=== PATIENT | male | born 2000 | race Caucasian/White ===

== ENCOUNTER 2021-07-15 10:03 | Emergency (ER) | payer OTHER ==
[~2021-07-15] VITALS: Ht 165.1 cm; Wt 59.1 kg
[2021-07-15 11:49] VITALS: BP 111/59
== END 2021-07-15 11:50 | disposition home or self-care (01) ==
LOC: EDSEX 10:06 → EMS 10:06
DX: R55 Syncope and collapse (principal); F17.210 Nicotine dependence, cigarettes, uncomplicated; F11.90 Opioid use, unspecified, uncomplicated; F12.90 Cannabis use, unspecified, uncomplicated; F15.90 Other stimulant use, unspecified, uncomplicated
CPT/HCPCS: 93005; 99284; Z7502

== ENCOUNTER 2025-06-01 20:30 | Emergency (ER) | payer MEDICAID, OTHER ==
[~2025-06-01] VITALS: Ht 165.1 cm; Wt 54.5 kg
[2025-06-01 20:49] VITALS: TEMP 98
[2025-06-01 22:19] VITALS: BP 108/71; PULSE 94; RESP 18; O2SAT 99
[2025-06-01] MEDS: AMOX TR/POT CLAV 875 MG/125 MG TABLET PO ONE (22:59)
[2025-06-01] MEDS: SULFAMETHOX/TRIMETH DS 800-160 MG/TABLET PO ONE (22:59)
[2025-06-01] MEDS: IBUPROFEN 400 MG TABLET PO ONE (22:59)
[2025-06-01] MEDS: ACETAMINOPHEN 500 MG TABLET PO ONE (22:59)
[2025-06-01] MEDS ORDERED: AMOX-457 PO (23:00)
[2025-06-01] MEDS ORDERED: ACET-2247 PO (23:00)
[2025-06-01] MEDS ORDERED: SULF-261 PO (23:00)
[2025-06-01] MEDS ORDERED: IBUP-1506 PO (23:00)
== END 2025-06-01 23:41 | disposition home or self-care (01) ==
LOC: EMS 20:34
DX: L03.213 Periorbital cellulitis (principal); F12.90 Cannabis use, unspecified, uncomplicated; F15.90 Other stimulant use, unspecified, uncomplicated; F17.210 Nicotine dependence, cigarettes, uncomplicated
CPT/HCPCS: 99284; Z7502; Z7610